=== PATIENT | female | born 2000 | race Caucasian/White ===

== ENCOUNTER 2023-02-14 11:31 | Emergency (ER) | payer BC, OTHER ==
[2023-02-14 11:40] VITALS: BP 137/63; PULSE 92; RESP 18; TEMP 98.4; BMI 27.3
[2023-02-14] MEDS ORDERED: IBUPROFEN 600 MG TABLET (FP) PO ONE ×2 (12:45→12:46)
== END 2023-02-14 12:55 | disposition home or self-care (01) ==
LOC: JERFT 11:31
DX: S66.911A Strain of unspecified muscle, fascia and tendon at wrist and hand level, right hand, initial encounter (principal); X50.0XXA Overexertion from strenuous movement or load, initial encounter
CPT/HCPCS: 73130-TC-RT-FY; 99283-25